=== PATIENT | male | born 1990 | race Caucasian/White ===

== ENCOUNTER 2019-02-25 01:22 | Emergency (ER) | payer OTHER ==
[2019-02-25 02:43] LABS: APPEARANCE,URINE CLEAR; BILIRUBIN,URINE NEGATIVE (NEGATIVE); COLOR,URINE YELLOW; GLUCOSE, URINE NEGATIVE (NEGATIVE); KETONES,URINE NEGATIVE (NEGATIVE); LEUKOCYTE ESTERASE,URINE LARGE (NEGATIVE); NITRITE,URINE NEGATIVE (NEGATIVE); PROTEIN,URINE NEGATIVE (NEGATIVE); UROBILINOGEN,URINE NEGATIVE mg/dL (<2.0)
[2019-02-25] MEDS ORDERED: LIDOCAINE 1% INJ-PF (10 MG/ML) 30 ML SDV INJ ONE (03:48)
[2019-02-25] MEDS ORDERED: CEFTRIAXONE INJ 250 MG VIAL IM ONE (03:48)
[2019-02-25] MEDS ORDERED: METRONIDAZOLE 500 MG TABLET PO ONE (03:49)
[2019-02-25] MEDS ORDERED: AZITHROMYCIN 250 MG TABLET PO ONE (03:49)
[2019-02-25] MEDS ORDERED: ONDANSETRON 4 MG TAB.RAPDIS PO ONE (03:49)
--- NOTE | 2019-02-25 03:55 | ER Document Report ---
HPI - HPI Time Seen by Provider: 02/25/19 03:41 Pain Level: 0 Context: Patient is a 28-year-old male that comes emergency department for chief complaint of painful urination and a peachy yellowish discharge from the penis. Symptoms started earlier today. He denies rash, abdominal pain, fever, or any other symptoms. He states that he was given oral sex recently but did not have sexual intercourse otherwise. He denies any daily medications, denies any diagnosed past medical history. Past Medical History - General Information source: Patient - Social History Smoking Status: Never Smoker Drug Abuse: None Lives with: Alone Family History: Reviewed & Not Pertinent Surgical Hx: Negative - Immunizations Immunizations up to date: Yes Hx Diphtheria, Pertussis, Tetanus Vaccination: Yes Vertical Provider Document - CONSTITUTIONAL General Appearance: WD/WN, No Apparent Distress - INFECTION CONTROL TRAVEL OUTSIDE OF THE [place] IN LAST 30 DAYS: No - HEENT HEENT: Atraumatic, Normal ENT Exam, Normocephalic. negative: Pharyngeal Exudate - NECK Neck: Normal Inspection - RESPIRATORY Respiratory: Breath Sounds Normal, No Respiratory Distress - CARDIOVASCULAR Cardiovascular: Regular Rate, Regular Rhythm - GI/ABDOMEN Gastrointestinal: Abdomen Soft, Abdomen Non-Tender - REPRODUCTIVE Male Genitalia: Normal Inspection. negative: Abnormal Inspection - No tenderness, swelling, rash, lesion, or other abnormality noted - BACK Back: Normal Inspection - MUSCULOSKELETAL/EXTREMETIES Musculoskeletal/Extremeties: MAEW, FROM, Non-Tender - NEURO Level of Consciousness: Awake, Alert, Appropriate Motor/Sensory: No Motor Deficit, No Sensory Deficit - DERM Integumentary: Warm, Dry, No Rash Course - Re-evaluation Re-evalutation: Symptoms reported are consistent with probably gonorrhea. Urinalysis reviewed shows leukocytosis consistent with this. Laboratory results delayed, patient will be treated and discharged after discussion. He will also be treated for possible trichomonas with Flagyl after discussion. Discussed follow-up and return precautions. Patient states understanding and agreement - Vital Signs Vital signs: Temp Pulse Resp BP Pulse Ox 98.3 F 70 14 112/99 H 98 02/25/19 01:27 02/25/19 01:27 02/25/19 01:27 02/25/19 01:27 02/25/19 01:27 - Laboratory Laboratory results interpreted by me: 02/25/19 02:15 Urine Blood SMALL H Ur Leukocyte Esterase LARGE H Discharge - Discharge Clinical Impression: Penile discharge, Dysuria Condition: Stable Disposition: HOME, SELF-CARE Additional Instructions: You have been treated for sexually transmitted infection exposure. Any partner also needs to be treated. Avoid sexual intercourse for 7 to 10 days. Follow-up with primary care. Return for any concerning symptoms including developing pain, swelling, fever, or any other concerning or worsening symptoms.
[2019-02-25 04:06] LABS: CHLAM PCR NOT DETECTED (NOT DETECT)
[2019-02-25 04:17] VITALS: BP 118/89
== END 2019-02-25 04:20 | disposition home or self-care (01) ==
LOC: ER 01:22
DX: R30.0 Dysuria (principal); R36.9 Urethral discharge, unspecified
CPT/HCPCS: 99283; 96374; 96375; 81001; 87491; 87591; S0119; J3490; J0696

== ENCOUNTER 2019-03-17 12:30 | Emergency (ER) | payer OTHER ==
[2019-03-17] MEDS ORDERED: KETOROLAC TROMETHAMINE INJ/PF 30 MG/1 ML SDV IV ONE (13:21)
[2019-03-17] MEDS ORDERED: NORMAL SALINE 1000 ML 1,000 ML IV ONE (13:21)
[2019-03-17] MEDS ORDERED: DIPHENHYDRAMINE HCL 50 MG/ML VIAL IV ONE (13:21)
[2019-03-17] MEDS ORDERED: METOCLOPRAMIDE HCL INJ/PF 10 MG/2 ML SDV IV ONE (13:21)
--- NOTE | 2019-03-17 13:26 | ER Document Report ---
ED Medical Screen (RME) - General Chief Complaint: Headache Stated Complaint: HEAD INJURY Time Seen by Provider: 03/17/19 13:11 Notes: Patient is a 28-year-old male presents to emergency department with chief complaint of headache. Patient states yesterday afternoon he was playing kickball when he started to run backwards causing him to fall. Patient states he when he fell he landed on his back and then struck the back of the head on artificial turf ground. Patient reports the artificial turf was soft. Patient denies loss of consciousness or vomiting afterwards. Patient denies confusion afterwards. Patient today complains of a frontal headache that feels like a throbbing. Patient states that he attempted to read an article when he found it very hard to concentrate. Patient states when he was attempting to read he did have some blurred vision but when he attempted to refocus the blurred vision did improve. Patient reports nausea. Patient reports neck pain bilaterally but denies pain to the cervical spine. + Photosensitivity. TRAVEL OUTSIDE OF THE [place] IN LAST 30 DAYS: No - Related Data Allergies/Adverse Reactions: No Known Allergies Allergy (Verified 03/17/19 12:34) Past Medical History Renal/ Medical History: Denies: Hx Peritoneal Dialysis - Immunizations Immunizations up to date: Yes Hx Diphtheria, Pertussis, Tetanus Vaccination: Yes Physical Exam - Vital signs Vitals: Temp Pulse Resp BP Pulse Ox 97.9 F 63 16 121/67 95 03/17/19 12:38 03/17/19 12:38 03/17/19 12:38 03/17/19 12:38 03/17/19 12:38 - HEENT Head: Normocephalic Eyes: Normal Conjunctiva: Normal Cornea: Normal Extraocular movements intact: Yes Eyelashes: Normal Pupils: PERRL External canal: Normal Tympanic membrane: Normal Sinus: Normal Nasal: Normal Mouth/Lips: Normal Mucous membranes: Normal Pharynx: Normal Neck: Normal Notes: No cervical midline tenderness. No leyva's sign or obvious signs of CSF discharge in the nose or ears. Course - Re-evaluation Re-evalutation: 03/17/19 13:25 I have greeted and performed a rapid initial assessment of this patient. A comprehensive ED assessment and evaluation of the patient, analysis of test results and completion of the medical decision making process will be conducted by additional ED providers. - Vital Signs Vital signs: Temp Pulse Resp BP Pulse Ox 97.9 F 63 16 121/67 95 03/17/19 12:38 03/17/19 12:38 03/17/19 12:38 03/17/19 12:38 03/17/19 12:38
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
[2019-03-17 16:46] VITALS: BP 119/75
== END 2019-03-17 16:46 | disposition home or self-care (01) ==
LOC: ER 12:30
DX: S06.0X0A Concussion without loss of consciousness, initial encounter (principal); R51 Headache; H53.8 Other visual disturbances; M54.2 Cervicalgia; M79.10 Myalgia, unspecified site; R29.818 Other symptoms and signs involving the nervous system; W19.XXXA Unspecified fall, initial encounter; Y93.6A Activity, physical games generally associated with school recess, summer camp and children; Z87.891 Personal history of nicotine dependence
CPT/HCPCS: 99284; 96361; 96374; 96375; 82962; 70450; J1200; J1885; J2765; J7030